=== PATIENT | male | born 1975 | race Caucasian/White ===

== ENCOUNTER 2022-09-25 23:22 | Emergency (ER) | payer MEDICARE, MEDICAID ==
[~2022-09-25] VITALS: Ht 185.4 cm; Wt 158.8 kg
[2022-09-25 23:36] VITALS: BP_SYST 136; PULSE 99; RESP 16; TEMP 97.9; O2SAT 100
[2022-09-26] MEDS ORDERED: KETOROLAC TROMETHAMINE 60 MG/2 ML VIAL IM ONE
[2022-09-26] MEDS ORDERED: IBUPROFEN 800 MG TABLET PO ONE (00:15)
[2022-09-26 01:04] LABS: COLOR,URINE YELLOW (YELLOW)
[2022-09-26 01:05] LABS: BILIRUBIN,URINE 1+ (NEGATIVE); CLARITY/URINE SLIGHTLY CLOUDY (CLEAR); GLUCOSE,URINE NEGATIVE (NEGATIVE); KETONES,URINE 1+ (NEGATIVE); PROTEIN URINE 2+ (NEGATIVE)
[2022-09-26 01:06] LABS: BLOOD, URINE 2+ (NEGATIVE); LEUKOCYTE ESTERASE ,URINE NEGATIVE (NEGATIVE); NITRITE, URINE NEGATIVE (NEGATIVE)
[2022-09-26] MEDS ORDERED: IBUP-1971 PO (01:13)
[2022-09-26 01:15] VITALS: BP_SYST 132; PULSE 97; RESP 18; TEMP 97.9; O2SAT 99
[2022-09-26 01:23] LABS: BACTERIA,URINE RARE /HPF (None Seen)
== END 2022-09-26 01:15 | disposition home or self-care (01) ==
LOC: SED 23:22
DX: R10.9 Unspecified abdominal pain (principal); Z79.899 Other long term (current) drug therapy
CPT/HCPCS: 81000; 99283